=== PATIENT | female | born 1965 | race Caucasian/White ===

== ENCOUNTER 2021-09-24 12:16 | Emergency (ER) | payer OTHER ==
--- OUTSIDE RECORDS SUMMARY | 2021-09-24 12:19 | XMS REPORT | Continuity of Care Document ---
:1965 Author Organization [facility] t Address 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 Attending Clinician RD Attending Clinician Unavailable Lacho ALLRED, FACS, FASCRS Attending Clinician [phone] BOBBY MONK Attending Clinician Unavailable Dio Mcmullen Attending Clinician Unavailable CYNTHIA Attending Clinician Unavailable Dio Mcmullen Admitting Clinician Unavailable Physician, Primary or Family Admitting Clinician Unavailabl e Payers Payer Name Policy Type Policy Number Effective Date Expiration Date S ource OPEN ACCESS [id number] HMO/POS/EPO/PPO - AETNA Problems Condition Condition Condition Status Onset Resolution Last Treating Co mments Source Name Details Category Date Date Treatment Clinician Date 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[place] [facility] nevi nevi 03-19 [place] 00:00: of 00 Medicin e Eczema Eczema Disease Active [place] 12-26 [place] 00:00: of 00 Medicin e Herpes Herpes Disease Active [place] labialis labialis 12-26 Colleg e 00:[facility]: of 00 Medicin e 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 06-11 Colleg [facility] of other of other 00:00: of specified specified 00 Medi annmarie sites of sites of e skin skin Lentigo Lentigo Disease Active [place] 06-11 [place] 00:00: of 00 Medicin e Keratosis Keratosis Disease Active [place] seborrheic seborrheic 9-17 Co llege a a 00:00: of 00 Medicin e No known No known Disease Unive rs active active ity of problems problems [facility] Allergies, Adverse Reactions, Alerts Allergy Allergy Status Severity Reaction(s) Onset Inactive Treating Comm ents Source Name Type Date Date Clinician No Known DA Active [facility] 03-26 [facility] 00 l [facility] No Known DA Active [facility] Allergie 03-26 [facility] 00 l [facility] NO KNOWN Drug Active Univers ALLERGIE Class ity of S [facility] Social History Social Habit Start Date Stop Date Quantity Comments Source Exposure to Not sure [facility] SARS-CoV-2 [facility] (event) [place] Tobacco use and 2021-09-24 2021-09-24 Never used Universit y of exposure 00:00:00 00:00:00 [facility] Alcohol intake 2021-09-24 2021-09-24 Current drinker Unive rsity of 00:00:00 00:00:00 of alcohol [facility] (finding) [place] Sex Ass[birth year] At [birth year] Universit y of 00:00:00 00:00:00 [facility] Smoking Status Start Date Stop Date Source Never smoker [facility] Medications Ordered Filled Start Stop Current Ordering Indication Dosage Frequency Signature Comments Components Source Medication Medication Date Date Medication? Clinician (SIG) Name Name bromphenira 2020-09 Yes 10mL Take 10 mL Univers mine-pseudo 2-22 by mouth. ity of ephedrine-D 00:00: [facility] Medical mg/5 mL Branch syrup methylPREDN 2020-09 Yes Take as Uni vers ISolone 4 2-22 directed ity of mg tablets 00:00: on [place] 00 package. Medical [facility] aspirin 81 2020-09 Yes 81mg QD Take 81 mg U T MG EC 2-08 by mouth 1 Health tablet 15:48: (one) time 35 each day. Sod 2020-09 Yes [id number] Take first [place] Picosulfate 2-08 bottle at [facility] Ox-Cit 00:00: 4pm once Acd 00 you drink (Clenpiq) the entire 10-3.5-12 bottle. MG-GM Then take -GM/160ML 2nd bottle solution at 9pm once you drink the entire bottle. famciclovir 2020-09 Yes [id number] Take 3 [place] (FAMVIR) 0-29 tabs by [place] 500 MG 00:00: mouth at of tablet 00 first sign Medicin of e tingling famciclovir 2019-09- No [id number] Take 3 [place] (FAMVIR) 0-06 10-29 tabs by [place] 500 MG 00:00: 00:00 mouth at of tablet 00 :00 first sign Medicin of e tingling Vital Signs Vital Name Observation Time Observation Value Comments Source Systolic blood 2021-09-24 17:39:00 118 mm[Hg] Univer sity of pressure [facility] Diastolic blood 2021-09-24 17:39:00 80 mm[Hg] Unive rsity [facility] Heart rate 2021-09-24 17:39:00 124 /min [facility] Body temperature 2021-09-24 17:39:00 36.44 [facility] Respiratory rate 2021-09-24 17:39:00 21 /min [facility] Body height 2021-09-24 17:39:00 165.1 cm [facility] Body weight 2021-09-24 17:39:00 100.517 kg [facility] BMI 2021-09-24 17:39:00 36.88 kg/m2 [facility] Oxygen saturation in 2021-09-24 17:39:00 95 /min 93-95. University of Arterial blood by [facility] Pulse oximetry Branch Systolic blood 2021-07-23 13:54:00 123 mm[Hg] [facility] pressure Medicine Diastolic blood 2021-07-23 13:54:00 83 mm[Hg] [facility] pressure Medicine Heart rate 2021-07-23 13:54:00 87 /min [facility] Body height 2021-07-23 13:54:00 165.1 cm [facility] Body weight 2021-07-23 13:54:00 90.719 kg [facility] BMI 2021-07-23 13:54:00 33.28 kg/m2 [facility] Procedures This patient has no known procedures. Plan of Care Planned Activity Planned Date Details Comments Source Future Scheduled 2021-07-23 Screening for malignant [facility] Test 09:10:53 neoplasm of colon Medicine (procedure) [code = 110527139] Future Scheduled 2021-07-23 Screening for malignant [facility] Test 09:10:53 neoplasm of breast Medicine (procedure) [code = 879134733] Future Scheduled 2021-07-23 COVID-19 Vaccine (1) [facility] 09:10:53 [code = COVID-19 Vaccine Med icine (1)] Future Scheduled 2021-07-23 TETANUS SHOT (ADULT) [facility] 09:10:53 [code = TETANUS SHOT Medicin e (ADULT)] Future Scheduled 2021-07-23 BMI FOLLOW UP PLAN [code [facility] 09:10:53 = BMI FOLLOW UP PLAN] Medici ne Future Scheduled 2021-07-23 Hep[address] C screening [facility] 09:10:53 (procedure) [code = Medicine [id number]] Future Scheduled 2021-07-23 Human immunodeficiency B [facility] 09:10:53 virus screening Medicine (procedure) [code = [id number]] Future Scheduled 2021-07-23 Screening for malignant [facility] 09:10:53 neoplasm of cervix Medicine (procedure) [code = [id number]] Future Scheduled 2021-07-23 ZOSTER VACCINE (1 of 2) [facility] 09:10:53 [code = ZOSTER VACCINE (1 Me dicine of 2)] Future Scheduled 2021-07-23 FLU VACCINE > 6 MONTHS B [facility] 09:10:53 [code = FLU VACCINE > 6 Medi cine MONTHS] Encounters Start End Encounter Admission Attending Care Care Encounter Source Date/Time Date/Time Type Type Clinicians Facility Department ID 2021-09-24 2021-09-24 [place]gent [place], [facility] [id number] Univers 11:00:00 11:20:00 [facility] [id number] it y of EVERLY [id number] [place] as AVA?BLEA [id number] Me dical [place] [address] Branch MEDICAL OFFICE BUILDING 2021-09-24 2021-09-24 Outpatient Shital SULTANA [facility] [id number] Univers 11:00:00 11:00:00 CODI andrews [facility] 2021-09-22 2021-09-22 Telephone Monk, CARLOZ [facility] [id number] [place] 00:00:00 00:00:00 Heidy [facility] [id number] [facility] MED PLAZA [id number] 2021-09-13 2021-09-13 Outpatient LACHO [facility] 10:45:00 23:59:00 HEIDY Negrete [facility] 2021-07-23 2021-07-23 Outpatient Mrogan Willis [facility] [id number] [facility] 12:00:00 12:00:00 [id number] Woman' s [facility] 2021-07-23 2021-07-23 Office MADDIE MARIE [id number] [place] [address] 08:40:18 10:38:59 Visit MINAL AMBULATOR [id number] College Y [id number] of [id number] [facility] annmarie 300 e 2020-07-01 2020-07-01 [facility] [id number] [facility] 12:00:00 12:00:00 [facility] Results This patient has no known results.
[2021-09-24 13:32] LABS: Absolute Lymphocytes (CBC) 1.6 K/uL (0.7-4.9); Hematocrit 44.6 % (36.0-45.0); Lymphocytes % 12.2 % (15.3-44.8); MPV 8.8 fL (7.6-11.3); RBC Red Blood Cell Count 5.04 M/uL (3.86-4.86)
[2021-09-24] MEDS ORDERED: NA CHLORIDE 0.9% 1,000 ML ONE (13:36)
[2021-09-24] MEDS ORDERED: ACETAMINOPHEN 325 MG TABLET ONE (13:36)
--- NOTE | 2021-09-24 14:29 | RAD REPORT ---
EXAM DESCRIPTION: RAD - Chest Single View - 09/24/2021 1:28 pm CLINICAL HISTORY: Cough;Dyspnea COMPARISON: None TECHNIQUE: AP portable chest image was obtained 09/24/2021 1:28 pm . FINDINGS: No peripheral mass or consolidation. Interstitial pattern is not outside of normal range. Under penetrated technique accentuates interstitial markings. Heart and vasculature are normal. No me asurable pleural effusion and no pneumothorax. No acute bony abnormality seen. No acute aortic findin gs suspected. IMPRESSION: No acute cardiopulmonary process.
[2021-09-24 15:59] LABS: SARS-COV-2 RT PCR NEGATIVE (NEGATIVE)
--- NOTE | 2021-09-24 16:43 | RAD REPORT ---
EXAM DESCRIPTION: CT - Chest For Pe Angio - 09/24/2021 2:45 pm CLINICAL HISTORY: DYSPNEA COMPARISON: Chest Single View dated 09/24/2021 TECHNIQUE: Dynamically enhanced 3 mm thick images of the chest were obtained during administration o f approximately 150mL Isovue 370 IV contrast. Coronal and oblique MIP reconstruction images were gene rated and reviewed. Exam utilizes a protocol to evaluate the pulmonary arterial tree. All CT scans are performed using dose optimization technique as appropriate and may include automated exposure control or mA/KV adjustment according to patient size. FINDINGS: No pulmonary emboli are identified. The aorta as imaged shows no acute or suspicious finding. No pericardial thickening or effusion. No infiltrate or mass in the lung parenchyma. No pleural effusion or pleural thickening. No endobronc hial lesion. No mediastinal or hilar suspicious masses. No chest wall masses or abnormal axillary lymphadenopathy. IMPRESSION: No pulmonary emboli identified. No other significant or suspicious findings.
--- NOTE | 2021-09-24 17:03 | ER ---
Nurse's Notes [facility] Name: Carmen Escobar Age: 56 yrs Sex: Female : 1965 Arrival Date: 09/24/2021 Time: 12:18 Bed 24 Private MD: Diagnosis: Cough;Dyspnea, unspecified Presentation: 09/24 12:30 Chief complaint: Patient states: chest tightness and SOB for two days, worsened today. eo2 Pt reports cough/ congestion for 1 week, has been on prednisolone, bromphen, and montelukast since Monday, not effective. Pt reports O2 Sat was low when she went for her colonoscopy this morning, did not get procedure done, went to an and was referred to the ER. Coronavirus screen: Vaccine status: Patient reports receiving the 2nd dose of the covid vaccine. Coronavirus screen: Client denies travel out of the [place] in the last 14 days. Ebola Screen: Patient negative for fever greater than or equal to 101.5 degrees Fahrenheit, and additional compatible Ebola Virus Disease symptoms Patient denies exposure to infectious person. Patient denies travel to an Ebola-affected area in the 21 days before illness onset. No symptoms or risks identified at this time. Initial Sepsis Screen: Does the patient meet any 2 criteria? No. Patient's initial sepsis screen is negative. Does the patient have a suspected source of infection? No. Patient's initial sepsis screen is negative. Risk Assessment: Do you want to hurt yourself or someone else? Patient reports no desire to harm self or others. Onset of symptoms is unknown. 12:30 Method Of Arrival: Ambulatory eo2 12:30 Acuity: DIANA 2 eo2 Triage Assessment: 12:34 General: Appears well groomed, Behavior is anxious, crying. Pain: Denies pain. eo2 Cardiovascular: Reports shortness of breath, "Chest tightness" otherwise denies chest pain. 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 - Social history:: Smoking status: Patient denies any tobacco usage or history of. Patient uses alcohol, occasionally. - Family history:: not pertinent. - Hospitalizations: : No recent hospitalization is reported. Screenin:45 Abuse screen: Denies threats or abuse. Denies injuries from another. Nutritional bp screening: No deficits noted. Tuberculosis screening: No symptoms or risk factors identified. Fall Risk None identified. Assessment: 12:45 General: SEE TRIAGE NOTE. bp 15:00 Reassessment: No changes from previously documented assessment. Patient and/or family bp updated on plan of care and expected duration. Pain level reassessed. Patient is alert, oriented x 3, equal unlabored respirations, skin warm/dry/pink. PT RETURNED FROM CT. 17:26 Pain: Pain radiates to chest Pain began gradually. vazquez Vital Signs: 12:30 BP 155 / 103; Pulse 132; Resp 19; Temp 99.2; Pulse Ox 98% ; Weight 99.79 kg; Height 5 eo2 ft. 5 in. (165.10 cm); Pain 0/10; 13:30 BP 131 / 82; Pulse 82; Resp 17; Pulse Ox 98% ; bp 14:49 Pulse 103; Pulse Ox 97% on R/A; mb4 15:26 BP 113 / 69; Pulse 70; Resp 16; Pulse Ox 98% ; bp 12:30 Body Mass Index 36.61 (99.79 kg, 165.10 cm) eo2 ED Course: 12:18 Patient arrived in ED. ds1 12:34 Triage completed. eo2 12:35 Casper Wheeler MD is Attending Physician. rn 12:45 Patient has correct armband on for positive identification. Bed in low position. Call bp light in reach. Side rails up X2. small arms repairer on. Pulse ox on. NIBP on. 13:00 Inserted saline lock: 20 gauge in right forearm, using aseptic technique. Blood bp collected. 13:28 XRAY Chest (1 view) In Process Unspecified. EDMS 13:29 Chavo Nam, MORRO is Primary Nurse. bp 14:45 CT Chest For PE Angio In Process Unspecified. EDMS 17:25 No provider procedures requiring assistance completed. IV discontinued, intact, vazquez Pressure dressing applied. Patient maintains SpO2 saturation greater than 95% on room air. 17:26 Arm band placed on. vazquez Administered Medications: 13:30 Drug: NS 0.9% 1000 ml Route: IV; Rate: 1000 ml; Site: right forearm; bp 13:30 Drug: Tylenol 650 mg Route: PO; bp 15:25 Follow up: Response: No adverse reaction bp Outcome: 17:02 Discharge ordered by . rn 17: Discharged to home 17: Condition: good 17: Discharge instructions given to patient, Prescriptions given X 1. 17:26 Patient left the ED. vazquez Signatures: Dispatcher [employer] EDGA Gali Levine ds1 Casper Wheeler MD MD rn Peltier, Brian, RN RN Daxa aSlinas mb4 Lindsay Laird RN RN vazquez Renetta Padilla RN RN eo2
--- NOTE | 2021-09-24 17:03 | EDPHYS ---
Physician Documentation [facility] Name: Carmen Escobar Age: 56 yrs Sex: Female : 1965 Arrival Date: 09/24/2021 Time: 12:18 Bed 24 Private MD: ED Physician Casper Wheeler HPI: 09/24 13:37 This 56 yrs old Female presents to ER via Ambulatory with complaints of Shortness Of rn Breath. 13:37 The patient has shortness of breath at rest, with light activity. Onset: The rn symptoms/episode began/occurred today. Duration: The symptoms are continuous, but are steadily getting better. The patient's shortness of breath is aggravated by coughing, supine position, walking, is alleviated by nothing. Associated signs and symptoms: Pertinent positives: productive cough, fever, Pertinent negatives: hemoptysis, loss of consciousness. Severity of symptoms: At their worst the symptoms were mild in the emergency department the symptoms are unchanged. The patient has not experienced similar symptoms in the past. The patient has been recently seen by a physician:. Patient reports has been sick over the last week, on day 3 of illness was tested and negative for Covid and flu. States felt like was getting better but yesterday began to feel worse again. Reports productive cough/fever/shortness of breath. Thought she felt okay for a scheduled colonoscopy this morning but upon arrival oxygen was found to be 90% and colonoscopy was canceled. She did complete the prep last night and has not had anything to eat or drink. Reports generalized weakness and malaise.. 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 - Social history:: Smoking status: Patient denies any tobacco usage or history of. Patient uses alcohol, occasionally. - Family history:: not pertinent. - Hospitalizations: : No recent hospitalization is reported. ROS: 13:37 Constitutional: Positive for fever Eyes: Negative for injury, pain, redness, and trial attorney, ENT: Negative for injury, pain, and discharge, Neck: Negative for injury, pain, and swelling, Cardiovascular: Negative for palpitations, and edema Respiratory: Positive for cough and shortness of breath Abdomen/GI: Negative for abdominal pain, nausea, vomiting, diarrhea, and constipation, Back: Negative for injury and pain, : Negative for injury, bleeding, discharge, and swelling, MS/Extremity: Negative for injury and deformity, Skin: Negative for injury, rash, and discoloration, Neuro: Negative for numbness, tingling, and seizure. Exam: 13:37 Constitutional: This is a well developed, well nourished patient who is awake, alert, rn and in no acute distress. Head/Face: Normocephalic, atraumatic. Eyes: Periorbital areas with no swelling, redness, or edema. ENT: Dry mucous membranes Neck: Trachea midline, no masses palpated, and no cervical lymphadenopathy. Supple, full range of motion without nuchal rigidity, or vertebral point tenderness. No Meningismus. Cardiovascular: Tachycardic, regular Respiratory: No increased work of breathing, no retractions or nasal flaring. Abdomen/GI: Soft, nontender Skin: Warm, dry MS/ Extremity: Pulses equal, no cyanosis. Neuro: Awake and alert, GCS 15, oriented to person, place, time, and situation. Vital Signs: 12:30 BP 155 / 103; Pulse 132; Resp 19; Temp 99.2; Pulse Ox 98% ; Weight 99.79 kg; Height 5 eo2 ft. 5 in. (165.10 cm); Pain 0/10; 13:30 BP 131 / 82; Pulse 82; Resp 17; Pulse Ox 98% ; bp 14:49 Pulse 103; Pulse Ox 97% on R/A; mb4 15:26 BP 113 / 69; Pulse 70; Resp 16; Pulse Ox 98% ; bp 12:30 Body Mass Index 36.61 (99.79 kg, 165.10 cm) eo2 MDM: 12:35 Patient medically screened. rn 16:30 Differential diagnosis: Bronchitis pneumonia, Pneumothorax pulmonary edema, Pulmonary rn Embolism reactive airway disease. Data reviewed: vital signs, nurses notes, lab test result(s), EKG, radiologic studies, CT scan, plain films. Data interpreted: Pulse oximetry: on room air is 98 %. Interpretation: normal. Counseling: I had a detailed discussion with the patient and/or guardian regarding: the historical points, exam findings, and any diagnostic results supporting the discharge/admit diagnosis, lab results, radiology results, the need for outpatient follow up, to return to the emergency department if symptoms worsen or persist or if there are any questions or concerns that arise at home. Response to treatment: the patient's symptoms have markedly improved after treatment, and as a result, I will discharge patient. Special discussion: I discussed with the patient/guardian in detail that at this point there is no indication for admission to the hospital. It is understood, however, that if the symptoms persist or worsen the patient needs to return immediately for re-evaluation. ED course: Pt pending CT chest for PE rule out. CXR no acute findings. Oxygen normal here. Will dc home with abx given length of symptoms if PE study neg. . 09/24 12:49 Order name: CBC with Diff rn 09/24 12:49 Order name: Basic Metabolic Panel; Complete Time: 14:32 rn 09/24 12:49 Order name: Procalcitonin; Complete Time: 16:30 rn 09/24 12:49 Order name: Blood Culture Adult (2) rn 09/24 12:49 Order name: CBC with Automated Diff; Complete Time: 13:37 EDNE 09/24 12:49 Order name: IV Start; Complete Time: 13:30 rn 09/24 12:49 Order name: XRAY Chest (1 view); Complete Time: 14:32 rn 09/24 12:49 Order name: EKG; Complete Time: 12:49 rn 09/24 12:49 Order name: Procalcitonin; Complete Time: 14:32 EDNE 09/24 14:33 Order name: CT Chest For PE Angio; Complete Time: 17:02 rn Administered Medications: 13:30 Drug: NS 0.9% 1000 ml Route: IV; Rate: 1000 ml; Site: right forearm; bp 13:30 Drug: Tylenol 650 mg Route: PO; bp 15:25 Follow up: Response: No adverse reaction bp Disposition Summary: 09/24/21 17:02 Discharge Ordered Location: Home rn Problem: new rn Symptoms: have improved rn Condition: Stable rn Diagnosis - Cough rn - Dyspnea, unspecified rn Followup: rn - With: Private Physician - When: As needed - Reason: Recheck today's complaints, Re-evaluation by your physician Discharge Instructions: - Discharge Summary Sheet rn - Shortness of Breath, Adult rn - Cough, Adult rn Forms: - Medication Reconciliation Form rn - Thank You Letter rn - Antibiotic rn peritoneal dialysis - Prescription Opioid Use rn Prescriptions: - Zithromax Z-Shekhar 250 mg Oral Tablet - take 1 tablet by ORAL route as directed for 5 days Day 1 - take two (2) tablets rn one time. Day 2, 3, 4 , 5 take one (1) tablet once daily.; 6 tablet; Refills: 0, Product Selection Permitted Signatures: Dispatcher [employer] EDMS Casper Wheeler MD MD rn Peltier, Brian RN RN bp Renetta Padilla RN RN eo2 Corrections: (The following items were deleted from the chart) 13:29 12:49 EKG - Nurse/Tech ordered. nae bp
[2021-09-24 17:37] VITALS: TEMP 99.2
[2021-09-24 17:52] VITALS: BP 113/69; O2SAT 98
== END 2021-09-24 17:26 | disposition home or self-care (01) ==
LOC: ER 12:16
DX: R05.9 Cough, unspecified (principal); R06.00 Dyspnea, unspecified; Z20.822 Contact with and (suspected) exposure to COVID-19
CPT/HCPCS: 93005; 87040 ×2; 85025; 80048; 36415; 84145; 0240U; 71275; 71045; 99285; Q9967; J7030